=== PATIENT | female | born 1965 | race Caucasian/White ===

== ENCOUNTER 2018-11-03 12:26 | Emergency (ER) | payer MEDICAID ==
[~2018-11-03] VITALS: Ht 160 cm; Wt 85.3 kg
[2018-11-03 13:08] LABS: ABSOLUTE BASOPHILS 0.1 thou/uL (0.0-0.2); ABSOLUTE EOSINOPHILS 0.1 thou/uL (0.0-0.7); ABSOLUTE LYMPHOCYTES 2.4 thou/uL (0.8-5.3); ABSOLUTE MONOCYTES 0.5 thou/uL (0.0-1.2); ABSOLUTE NEUTROPHILS 3.9 thou/uL (1.6-8.1); BASOPHILS 0.7 %; EOSINOPHILS 1.2 %; HEMATOCRIT 42.4 % (37.0-47.0); HEMOGLOBIN 14.1 gm/dL (12.0-15.0); LYMPHOCYTES 34.1 %; MCH 29.9 pg (26.0-34.0); MCHC 33.2 g/dL (28.0-37.0); MCV 90.1 fL (80.0-100.0); MONOCYTES 7.4 %; MPV 10.6 fl. (7.2-11.1); NUCLEATED RBCS 0 /100WBC; PLATELET COUNT* 185 thou/uL (150-400); POLYS 56.6 %; RDW-CV 15.7 % (10.5-14.5)
[2018-11-03 13:19] LABS: APTT 24.7 Seconds (25.0-31.3)
[2018-11-03 13:27] LABS: ANION GAP 10 mmol/L (7-16); BUN 10 mg/dL (7-18); CALCIUM 9.5 mg/dL (8.5-10.1); CHLORIDE 106 mmol/L (98-107); CO2 28 mmol/L (21-32); GLUCOSE 111 mg/dL (70-99); POTASSIUM 3.3 mmol/L (3.5-5.1); SODIUM 144 mmol/L (136-145); TROPONIN-I LEVEL <0.06 ng/mL (<0.06)
[2018-11-03 13:32] LABS: ALBUMIN 3.3 g/dL (3.4-5.0); ALKALINE PHOSPHATASE 109 U/L (46-116); CK-MB MASS 0.5 ng/mL (<0.5-3.6); LIPASE 61 U/L (73-393); MAGNESIUM 1.8 mg/dL (1.8-2.4); NT-PRO BRAIN NAT PEPTIDE 37 pg/mL (<300); SGOT 17 U/L (15-37); SGPT 21 U/L (30-65); TOTAL BILIRUBIN 0.3 mg/dL (<0.1-1.0); TOTAL PROTEIN 6.9 g/dL (6.4-8.2)
[2018-11-03 14:21] VITALS: BP 141/67
--- NOTE | 2018-11-03 16:53 | EKG ---
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
== END 2018-11-03 14:21 | disposition home or self-care (01) ==
LOC: M.ERS 12:26
PROVIDERS: Family Medicine
DX: F41.9 Anxiety disorder, unspecified (principal); F31.9 Bipolar disorder, unspecified; I10 Essential (primary) hypertension; F25.9 Schizoaffective disorder, unspecified; Z88.0 Allergy status to penicillin; Z88.1 Allergy status to other antibiotic agents; Z86.73 Personal history of transient ischemic attack (TIA), and cerebral infarction without residual deficits

== ENCOUNTER → 2018-12-17 | Outpatient (CLI) | payer MEDICAID | LOC: M.RAD 11:41 | DX: M25.572 Pain in left ankle and joints of left foot (principal); Z91.81 History of falling ==

== ENCOUNTER 2021-07-01 10:51 | Emergency (ER) | payer MEDICAID ==
[~2021-07-01] VITALS: Ht 160 cm; Wt 80.1 kg
[2021-07-01 11:13] VITALS: BP 116/67
== END 2021-07-01 11:15 | disposition left against medical advice (07) ==
LOC: M.ERS 10:51
DX: M54.50 Low back pain, unspecified (principal); Z53.21 Procedure and treatment not carried out due to patient leaving prior to being seen by health care provider